=== PATIENT | male | born 1980 | race Caucasian/White ===

== ENCOUNTER 2017-04-07 00:19 | Emergency (ER) | payer OTHER ==
[~2017-04-07] VITALS: Ht 175.3 cm; Wt 68.2 kg
[~2017-04-07 00:19] MED LIST: CIPR-231 PO; DIAZ2TAB PO; HYDR-4003 PO; METH-313 PO; NPR500T PO; PRE20 PO; SULF1TAB7 PO; TRAM50TA2 PO
[2017-04-07 00:31] VITALS: BP 117/72; PULSE 79; RESP 17; O2SAT 99
--- NOTE | 2017-04-07 00:42 | ED.REPORT ---
HPI-Eye Problem Date of Service April 07, 2017 ED Provider: Willi Conte MD 37 year old male presents to the ER complaining of left eye pain and swelling onset upon awakening tonight around 10:30. Associated symptom of gluey discharge. He placed a warm, wetted washcloth over his eye and took some ibuprofen to treat his symptoms without relief. Patient denies fever, itching, and any recent injury or exposure to the affected eye. Nursing Notes Stated Complaint: LEFT EYE PAIN Chief Complaint: Eye Nursing Notes Reviewed: Yes Allergies: Coded Allergies: cyclobenzaprine HCl (Verified Allergy, Intermediate, Restlessness, 06/27/16) "creepy crawler feeling in legs" Scheduled Ciprofloxacin (Cipro) 500 Mg Tablet 500 MG PO BID Erythromycin Ophth Oint (Erythromycin Ophth Oint) 3.5 Gm Oint...g. 1 APPL LEFT_ EYE 5XD Prednisone (PredniSONE) 20 Mg Tablet 20 MG PO TID Sulfamethoxazole/Trimeth 800-160 mg (Bactrim DS) 1 Each Tablet 1 TABLET PO BID Scheduled PRN Diazepam (Valium) 2 Mg Tablet 2 MG PO TID PRN PRN For Anxiety Hydrocodone-Acetaminophen 5-325 mg (Hydrocodone-Acetaminophen 5-325 mg) 1 Each Tablet 1 TABLET PO HS PRN PRN For Pain Hydrocodone-Acetaminophen 5-325 mg (Hydrocodone-Acetaminophen 5-325 mg) 1 Each Tablet 1-2 TABLET PO Q4H PRN PRN For Pain Hydrocodone-Acetaminophen 5-325 mg (Hydrocodone-Acetaminophen 5-325 mg) 1 Each Tablet 1-2 TABLET PO HS PRN PRN For Pain Methocarbamol (Robaxin-750) 750 Mg Tablet 750 MG PO TID PRN PRN For Pain Naproxen (Naproxen) 500 Mg Tab 500 MG PO BID PRN PRN For Pain Tramadol (Tramadol) 50 Mg Tablet 100 MG PO Q6H PRN PRN For Pain General Time Seen by MD: 00:41 Chief Complaint Left eye affected, Pain, Swelling Hx Obtained From: Patient Arrived By: Walk-in Sudden in Onset?: No Onset Occurred: 1 - 4 hours ago Symptom Duration: Since onset Location: : Eye left Quality: Painful Severity: Current: Mild Severity: Maximum: Mild Pertinent Negative: Pt denies other symptoms Similar Sx Previous: No Past Medical History Past Medical History Chronic low back pain Past Surgical History None Smoking History Current Every Day Smoker Social History hx of prescription drug addiction approx 8 years ago. Alcohol Use: "Social" Drug Use: THC Other Social History: Good social support, Local resident Ambulatory Status Independent Review of Systems Eyes: Reports: Discharge left, Eye pain left, Denies: Blurred bilateral, Redness bilateral, Visual loss bilateral Complete sys rev & neg: except as marked. Physical Exam Initial Vital Signs Vital Signs (First) Date Time Temp Pulse Resp B/P Pulse Ox O2 Delivery O2 Flow Rate FiO2 04/07/17 00:31 36.5 79 17 117/72 99 Room Air Initial VS: Reviewed General / Const: Well-developed, Well-nourished Neck: Supple, Non-tender, Full range of motion Extremities: Vascular intact, Neuro intact, No swelling, No tenderness Skin: Warm, Dry, No cyanosis Neurologic: Alert, Oriented, Nonfocal Head / Eyes: Normocephalic, PERRL, EOMI Left eye swollen lid. Normal sclera. No obvious crusting. ENT: Airway patent, Mucous membranes moist, Pharynx NL Re-Eval/Medical Decision Med Decision/Clinical Course 37-year-old presents with sore swollen upper eyelid and a developing stye. Minimal discharge and benign conjunctiva. Home with erythromycin ointment five times daily, hot soaks, and follow up with ophthalmology. Source of Hx: Old records Re-Evaluation/Progress : Time of Eval: 00:49 Re-Evaluation/Progress Note: Discussed physical examination and plan to discharge. Patient is amenable to the plan. Return precautions given. All other questions addressed. Counseled Regarding: Diagnosis, Need for follow-up, When/why to return to ED Discharge & Departure Primary Impression: Stye Disposition: Home Discharge Condition All VS Reviewed: Yes Condition: Stable Patient Instructions: Stye (GEN) Additional Instructions: Apply a hot wet washcloth 5-6 times daily for five minutes each time. Then Apply the prescribed ointment five-6 times daily as directed. continue that for 5 days. Clear any discharge from the eye with a warm washcloth prior to applying the drops. Follow-up with the oxidized finish plater tomorrow at the number provided. Return if you develop any worsening or concerning symptoms. Referrals: Kaiser Lambert MD (PCP) Ramiro Kaufman MD Scribe Attestation Portions of this note were transcribed by Marc Sanchez. I, Dr. Conte, personally performed the history, physical exam and medical decision-making; I reviewed and confirmed the accuracy of the information in the transcribed note. Signed by: Anne Cheema, 04/07/2017 at 01:18 copies to: Kaiser Lambert MD; Ramiro Kaufman MD, Christopher W MD April 07, 2017 00:42 MARC SANCHEZ April 07, 2017 00:50
[2017-04-07] MEDS ORDERED: Erythromycin 0.5% 3.5 Gm Ophthalmic Ointment LEFT_EYE ONE (00:55)
[2017-04-07] MEDS ORDERED: Erythromycin 0.5% 3.5 Gm Ophthalmic Ointment LEFT_EYE SCH ×2 (01:00→06:00)
[2017-04-07] MEDS ORDERED: ERYT1OIN7 LEFT_EYE (01:01)
== END 2017-04-07 01:10 | disposition home or self-care (01) ==
LOC: SED 00:19
DX: H00.014 Hordeolum externum left upper eyelid (principal); F17.210 Nicotine dependence, cigarettes, uncomplicated; F12.10 Cannabis abuse, uncomplicated; Z79.52 Long term (current) use of systemic steroids; Z88.8 Allergy status to other drugs, medicaments and biological substances

== ENCOUNTER 2017-04-23 13:11 | Emergency (ER) | payer OTHER ==
[~2017-04-23] VITALS: Ht 175.3 cm; Wt 68.2 kg
[~2017-04-23 13:11] MED LIST changes: +ERYT1OIN7 LEFT_EYE
[2017-04-23 13:19] VITALS: BP 109/74; PULSE 112; O2SAT 100
--- NOTE | 2017-04-23 13:45 | ED.REPORT ---
HPI-Back Pain Under 40 Date of Service April 23, 2017 ED Provider: Darryl Dodge MD Pt is a 37 y.o. male with a hx of chronic low back pain who presents to the ED c /o low back pain. Pt states that he was recently rototilling and aggravated his back. He describes the pain as stabbing and radiating to his hips bilaterally. He denies weakness, and urinary/fecal incontinence. He also denies a hx of back surgery. Pt is currently taking Naproxen and Methocarbamol with no relief. Nursing Notes Stated Complaint: HURT BACK Chief Complaint: Back Pain or Injury Nursing Notes Reviewed: Yes Allergies: Coded Allergies: cyclobenzaprine HCl (Verified Allergy, Intermediate, Restlessness, 06/27/16) "creepy crawler feeling in legs" Scheduled Ciprofloxacin (Cipro) 500 Mg Tablet 500 MG PO BID Erythromycin Ophth Oint (Erythromycin Ophth Oint) 3.5 Gm Oint...g. 1 APPL LEFT_ EYE 5XD Prednisone (PredniSONE) 20 Mg Tablet 20 MG PO TID Sulfamethoxazole/Trimeth 800-160 mg (Bactrim DS) 1 Each Tablet 1 TABLET PO BID Scheduled PRN Diazepam (Valium) 2 Mg Tablet 2 MG PO TID PRN PRN For Anxiety Hydrocodone-Acetaminophen 5-325 mg (Hydrocodone-Acetaminophen 5-325 mg) 1 Each Tablet 1 TABLET PO HS PRN PRN For Pain Hydrocodone-Acetaminophen 5-325 mg (Hydrocodone-Acetaminophen 5-325 mg) 1 Each Tablet 1-2 TABLET PO Q4H PRN PRN For Pain Hydrocodone-Acetaminophen 5-325 mg (Hydrocodone-Acetaminophen 5-325 mg) 1 Each Tablet 1-2 TABLET PO HS PRN PRN For Pain Methocarbamol (Robaxin-750) 750 Mg Tablet 750 MG PO TID PRN PRN For Pain Naproxen (Naproxen) 500 Mg Tab 500 MG PO BID PRN PRN For Pain Tramadol (Tramadol) 50 Mg Tablet 100 MG PO Q6H PRN PRN For Pain General Time Seen by MD: 13:45 Chief Complaint Back pain Hx Obtained From: Patient Arrived By: Walk-in Sudden in Onset?: No Symptom Duration: Since onset Caused by: Aggravated old injury Location: : Spinal lumbar area: Spinal sacral area Quality: Painful Past Medical History Past Medical History Chronic low back pain Past Surgical History None Smoking History Current Every Day Smoker Social History hx of prescription drug addiction approx 8 years ago. Alcohol Use: "Social" Drug Use: THC Other Social History: Good social support, Local resident Ambulatory Status Independent Review of Systems Male: Denies Incontinence Musculoskeletal: Reports: Back pain, Joint pain (Hips) Neurologic: Denies: Bladder dysfunction, Bowel dysfunction, Weakness Complete sys rev & neg: except as marked. Physical Exam Initial Vital Signs Vital Signs (First) Date Time Temp Pulse Resp B/P Pulse Ox O2 Delivery O2 Flow Rate FiO2 04/23/17 13:19 36.9 112 109/74 100 Initial VS: Reviewed Head / Eyes: Atraumatic, Normocephalic, PERRL Respiratory: Breath sounds normal, Clear to auscultation, No respiratory distress Cardiovascular: Regular rate & rhythm, Heart sounds normal, Intact distal pulses Abdomen / GI: No distention Extremities: Vascular intact, Neuro intact Skin: Warm, Dry, No cyanosis Psychiatric: Mood/affect normal, Behavior normal, Normal thought content General/Constitutional: Awake, Alert, No acute distress, Well appearing, Well developed, Well hydrated, Well nourished, Not toxic appearing Back: Atraumatic, Inspection NL, No midline vertebral tend, No paraspinal tenderness Neurologic: Oriented X3, Speech NL Strength intact in all extremitites. Re-Eval/Medical Decision Med Decision/Clinical Course Pt is a 37 y.o. male with a hx of chronic low back pain who presents to the ED c /o low back pain. Pt states that he was recently rototilling and aggravated his back. He describes the pain as stabbing and radiating to his hips bilaterally. He denies weakness, and urinary/fecal incontinence. He also denies a hx of back surgery. Pt is currently taking Naproxen and Methocarbamol with no relief. Here in the emergency department the patient is afebrile stable vital signs and examination as above. Our primary and secondary assessment reveals an awake, alert patient in no acute distress. Hemodynamically stable and afebrile. Exam reveals normal neurologic exam of the lower extremities. Given this immunocompetent, afebrile, patient's history and exam, suspect muscle strain or spasm. No concerning signs or symptoms suggestive of cauda equina, cord compression, epidural abscess or other neurologic emergency. History not suggestive of referred intraabdominal pathology or vascular emergency. There is no history of significant trauma, fever, incontinence, unexplained weight loss, cancer history, long-term steroid use or IV drug use. And given the patient's young age, I do not feel imaging is warranted at this time. Given the patient's workup, feel they are safe for discharge with conservative management. I offered nonnarcotic options for management of the patient's back pain exacerbation at which time he stood from his hospital bed and stated that he would like to leave the hospital and declined any intervention or treatment. The patient has decisional capacity and is chosen to refuse management of his back pain we will not give him narcotics. Have discussed with the patient results of workup, indications for return including: motor weakness in the lower extremities and/or bowel or bladder incontinence. Also emphasized the need for PCP follow up. They understand and agree with the plan. Source of Hx: Old records Re-Evaluation/Progress : Time of Eval: 14:22 Re-Evaluation/Progress Note: Pt left without recieving discharge instructions. Counseled Regarding: Diagnosis, Lab results, Need for follow-up, When/why to return to ED Discharge & Departure Impression: Primary Impression: Low back pain Chronicity: unspecified Back pain laterality: unspecified Sciatica presence : without sciatica Qualified Code: M54.5 - Low back pain Additional Impressions: Opiate dependence Substance use status: with unspecified opioid-induced disorder Qualified Code : F11.29 - Opioid dependence with unspecified opioid-induced disorder Muscle strain Disposition: Home All VS Reviewed: Yes Condition: Improved Referrals: Kaiser Lambert MD (PCP) Scribsharon Attestation Portions of this note were transcribed by Janes Rodriguez. I, Dr. Dodge personally performed the history, physical exam and medical decision-making; I reviewed and confirmed the accuracy of the information in the transcribed note. Signed by: Anne Martins, 04/23/17 and [id number]. copies to: Kaiser Lambert MD, Beck O MD April 23, 2017 13:45 JANES RODRIGUEZ April 23, 2017 14:14
== END 2017-04-23 14:16 | disposition left against medical advice (07) ==
LOC: SED 13:11
DX: M54.5 Low back pain (principal); S39.012A Strain of muscle, fascia and tendon of lower back, initial encounter; X50.3XXA Overexertion from repetitive movements, initial encounter; Y93.89 Activity, other specified; Y92.9 Unspecified place or not applicable; Y99.8 Other external cause status; F11.29 Opioid dependence with unspecified opioid-induced disorder; F17.200 Nicotine dependence, unspecified, uncomplicated; Z88.8 Allergy status to other drugs, medicaments and biological substances